=== PATIENT | female | born 1930 | race Caucasian/White ===

== ENCOUNTER 2017-04-11 19:33 | Emergency (ER) | payer MEDICARE ==
[~2017-04-11] VITALS: Ht 152.4 cm; Wt 59.0 kg
[2017-04-11 20:22] VITALS: BP 188/78
--- NOTE | 2017-04-11 21:02 | PHYS DOC ---
Past Medical History Past Medical History: Dementia, Depression, High Cholesterol, Hypertension Past Surgical History: Hysterectomy, Other Additional Past Surgical Histo: CATARACT Alcohol Use: None Drug Use: None Adult General Chief Complaint Chief Complaint: MECHANICAL FALL HPI HPI Patient is a 86 year old female brought to the ED by her daughter, who she lives with, after a fall in the yard. The patient has dementia. She got up to go outside without someone with her, which she usually does not do. She fell on a uneven surface in the yard. After she fell, she was helped up by family members and put in a wheelchair. At this time, they believe her only injury is to her left wrist. No head injury. The patient was recently diagnosed with dementia and "sundowners". She has had some anxiety, pacing during the day, up at night. She was recently started on Lexapro for this complaint. Review of Systems Review of Systems Review of systems not able to be obtained because of the patient's dementia Allergies Allergies Allergies Coded Allergies Type Severity Reaction Last Updated Verified No Known Drug Allergies 04/11/17 No Physical Exam Physical Exam Constitutional: Well developed, well nourished, no acute distress, non-toxic appearance. Alert, cooperative, does not really answer questions but does follow requests. HENT: Normocephalic, atraumatic, bilateral external ears normal, nose normal. [] Eyes: conjunctiva normal, no discharge. [] Neck: Normal range of motion, no tenderness, no stridor. [] Skin: Warm, dry, no erythema, no rash. [] Extremities: Left upper extremity no tenderness to palpation of the clavicle, shoulder, humerus, elbow; swelling, ecchymosis and tenderness of the wrist. No deformity of the fingers. Right upper extremity nontender to palpation. Right lower extremity has a small abrasion on the patella. No bony tenderness, no joint effusion. Left lower extremity no tenderness or deformity. Neurologic: Alert, normal motor function, no focal deficits noted. [] Current Patient Data Vital Signs Vital Signs Date Time Temp Pulse Resp B/P (MAP) Pulse Ox O2 Delivery O2 Flow Rate FiO2 04/11/17 20:22 75 16 188/78 (114) 04/11/17 20:04 97.7 93 Room Air 97.7 EKG EKG [] Radiology/Procedures Radiology/Procedures Three-view x-ray of the left wrist read by me. There is a comminuted distal radius fracture. No other fracture is noted.[] Course & Med Decision Making Course & Med Decision Making Pertinent Labs and Imaging studies reviewed. (See chart for details) 86-year-old female who fell and has a left distal radius fracture. A volar splint was placed by ED nursing personnel and checked by me. The patient had a trial of ambulation after splinting and daughter stated that she is ambulating at her baseline without additional complaints. See instructions for plan. [] Dragon Disclaimer Dragon Disclaimer This electronic medical record was generated, in whole or in part, using a voice recognition dictation system. Departure Departure Impression: Primary Impression: Fracture of left distal radius Disposition: HOME, SELF-CARE Condition: STABLE Referrals: JOHNATHAN FLOWERS MD Patient Instructions: Wrist Fracture, [id number] Additional Instructions: Leave the splint on and keep it dry, ice and elevate as much as possible for swelling. Use the sling if needed when she is upright, but elevation even higher would be helpful. She will be off balance with the sling so be very careful with ambulation, using a wheelchair would be the safest option. Call tomorrow to arrange follow-up with orthopedics. She will need a cast, but it needs to wait and tell her swelling goes down so later this week or early next week. MOMO PERES MD Apr 11, 2017 21:02
--- NOTE | 2017-04-12 08:07 | RAD ---
Left wrist, 3 views, 04/11/2017: History: Fall, pain There is patchy bony demineralization. There is a fracture of the distal left radius. The fracture is mildly comminuted with impaction of the fracture fragments. A fracture line appears to involve the articular surface. No other fracture is identified. There is widening of the scapholunate distance suggesting ligamentous injury at that level. There is moderate degenerative change along the radial aspect of the wrist including the first CMC joint. There is moderate diffuse soft tissue swelling. IMPRESSION: 1. Impacted distal radial fracture. 2. Widening of the scapholunate distance indicating ligamentous injury at that level of indeterminate age. 3. Moderate degenerative change.
== END 2017-04-11 21:44 | disposition home or self-care (01) ==
LOC: ER 19:33
DX: S52.502A Unspecified fracture of the lower end of left radius, initial encounter for closed fracture (principal); F03.90 Unspecified dementia, unspecified severity, without behavioral disturbance, psychotic disturbance, mood disturbance, and anxiety; E78.00 Pure hypercholesterolemia, unspecified; I10 Essential (primary) hypertension; W18.39XA Other fall on same level, initial encounter; Y93.89 Activity, other specified; Y99.8 Other external cause status; Y92.89 Other specified places as the place of occurrence of the external cause
CPT/HCPCS: 29125; 73110; 99284-25